=== PATIENT | female | born 1945 | race Caucasian/White ===

== ENCOUNTER 2020-05-01 08:17 | Day surgery (SDC) | payer MEDICARE ==
[~2020-05-01] VITALS: Ht 152.4 cm; Wt 56.2 kg
[~2020-05-01 08:17] MED LIST: Benicar40 MG PO; Dyazide 37.5-21 EACH PO; ESTRIOL VAG; METO100ER PO; PARO30 PO; POSTURE D PO; PROG100 PO; SIMV40 PO; Synthroid/Le0.075 MG PO; VITAMIN D31000 UNIT PO
== END 2020-05-01 10:00 | disposition home or self-care (01) ==
LOC: ORSCSDS 08:17
PROVIDERS: Ophthalmology
PROC: 08RK3JZ Replacement of Left Lens with Synthetic Substitute, Percutaneous Approach (ICD-10-PCS; principal; 2020-05-01 09:30)
DX: H25.12 Age-related nuclear cataract, left eye (principal); Z79.899 Other long term (current) drug therapy
CPT/HCPCS: J2001; J2250; J3010; J3301; V2632

== ENCOUNTER 2022-04-22 13:09 | Day surgery (SDC) | payer MEDICARE ==
[~2022-04-22] VITALS: Ht 152.4 cm; Wt 124.0 kg
[2022-04-22] MEDS ORDERED: ALEN10 PO (14:07)
== END 2022-04-22 18:37 | disposition home or self-care (01) ==
LOC: ORSCSDS 13:09
PROVIDERS: Internal Medicine Gastroenterology
PROC: 0DBL8ZX Excision of Transverse Colon, Via Natural or Artificial Opening Endoscopic, Diagnostic (ICD-10-PCS; principal; 2022-04-22 15:30)
PROC: 0DBM8ZX Excision of Descending Colon, Via Natural or Artificial Opening Endoscopic, Diagnostic (ICD-10-PCS; principal; 2022-04-22 15:30)
PROC: 0DBK8ZX Excision of Ascending Colon, Via Natural or Artificial Opening Endoscopic, Diagnostic (ICD-10-PCS; principal; 2022-04-22 15:30)
DX: Z12.11 Encounter for screening for malignant neoplasm of colon (principal); D12.2 Benign neoplasm of ascending colon; D12.3 Benign neoplasm of transverse colon; D12.4 Benign neoplasm of descending colon; Z86.010 Personal history of colon polyps; I10 Essential (primary) hypertension; E78.5 Hyperlipidemia, unspecified; E03.9 Hypothyroidism, unspecified; F32.A Depression, unspecified; Z79.899 Other long term (current) drug therapy
CPT/HCPCS: J0330; J0461; J2405; J2704; Q9968